=== PATIENT | female | born 1955 | race Caucasian/White ===

== ENCOUNTER 2020-12-17 11:10 | Outpatient (CLI) | payer OTHER, MEDICARE ==
--- NOTE | 2020-12-17 17:30 | XRAY Report ---
PROCEDURE: Chest 2 View X-Ray INDICATIONS: DYSPNEA, COUGH TECHNIQUE: 2 view(s) of the chest. COMPARISON: None. FINDINGS: Surgical changes and devices: Bilateral breast implants. Lungs and pleura: No pleural effusions or pneumothorax. Increased opacification of the posterior asp ect left lung base suspicious for aspiration versus pneumonia. Mediastinum: Mediastinal contours are normal. Heart size is normal. Bones and chest wall: No suspicious bony abnormalities. Soft tissues appear unremarkable. IMPRESSION: Increased opacification in the posterior aspect left lung base suspicious for aspiration versus pneum onia. Reviewed by: Penelope Brothers MD, PhD on 12/17/2020 5:29 PM PDT Approved by: Penelope Brothers MD, PhD on 12/17/2020 5:29 PM PDT Station ID: [id number]
== END 2020-12-17 23:59 | disposition home or self-care (01) ==
LOC: DI.S 11:10
PROVIDERS: ATTEND Emergency Medicine
DX: R91.8 Other nonspecific abnormal finding of lung field (principal); U07.1 COVID-19